=== PATIENT | female | born 1980 | race Hispanic/Latino ===

== ENCOUNTER → 2016-06-24 | Outpatient (CLI) | payer OTHER ==
[~2016-06-24] MED LIST: INSUNSD SC; LABE10TAB PO; NOVOINJ3 SC
--- NOTE | 2016-06-24 13:33 | REP ---
Clinical: Growth evaluation . Comparison: 06/03/2016 . Findings: Examination demonstrates a single live advanced intrauterine in cephalic presentation. motion is identified by technologist. Placenta is noted anteriorly and grade 3 without evidence for placenta previa or abruption. Amniotic fluid index equals 26.1 (7.6 - 24.6) Umbilical cord SD ratio equals 2.65 (1.76 - 2.76) Gestational age by LMP 36 weeks 4 days with ROZ 07/18/2016 . Gestational age by first ultrasound 36 weeks 4 days with ROZ 07/18/2016. Gestational age by current measurements 39 weeks 1 day with ROZ 06/30/2016 . FHR equals 139 beats per minute. BPD 9.3 cm 37 weeks 5 days HC 33.7 38 weeks 4 days AC 38.0 42 weeks 0 days FL 7.5 38 weeks 2 days HL 6.8 39 weeks 2 days HC/AC ratio 0.89 Estimated weight 4033 grams (greater than 97th percentile). Impression: Advanced gestation demonstrating greater than expected interval growth. Amniotic fluid index is mildly above normal range. Signed by Nathan Joyce MD 06/24/2016 01:24 P
== END ==
LOC: M RAD 11:57
PROVIDERS: ATTEND Obstetrics & Gynecology
DX: O24.414 Gestational diabetes mellitus in pregnancy, insulin controlled (principal); O10.013 Pre-existing essential hypertension complicating pregnancy, third trimester; O40.3XX0 Polyhydramnios, third trimester, not applicable or unspecified; Z3A.36 36 weeks gestation of pregnancy

== ENCOUNTER 2016-06-27 13:20 | Outpatient (CLI) | payer OTHER ==
[~2016-06-27] VITALS: Ht 175.3 cm; Wt 120.0 kg
[2016-06-27] MEDS ORDERED: INSUNSD SC (13:35)
[2016-06-27] MEDS ORDERED: NOVOINJ3 SC (13:35)
[2016-06-27] MEDS ORDERED: LABE10TAB PO ×2 (13:35)
[2016-06-27 13:39] VITALS: BP 147/82
[2016-06-27 13:41] VITALS: BP 143/85
[2016-06-27 13:57] VITALS: BP 158/82
[2016-06-27 14:24] LABS: MEAN CORPUSCULAR HEMOGLOBIN 30.7 pg (27.0-33.0); MEAN CORPUSCULAR HGB CONC 34.6 g/dl (32.0-36.5); MEAN CORPUSCULAR VOLUME 88.7 fl (80.0-96.0); RED CELL DISTRIBUTION WIDTH 14.3 % (11.5-14.5); WHITE BLOOD COUNT 7.5 K/mm3 (4.0-10.0)
[2016-06-27 14:37] LABS: ALBUMIN 2.3 GM/DL (3.2-5.2); ALBUMIN/GLOBULIN RATIO 0.59 (1.00-1.93); ALKALINE PHOSPHATASE 116 U/L (45-117); ALT/SGPT 19 U/L (12-78); ANION GAP 10 MEQ/L (8-16); AST/SGOT 20 U/L (15-37); BILIRUBIN,TOTAL 0.5 MG/DL (0.2-1.0); BLOOD UREA NITROGEN 13 MG/DL (7-18); CALCIUM LEVEL 8.7 MG/DL (8.5-10.1); CARBON DIOXIDE LEVEL 24 MEQ/L (21-32); CHLORIDE LEVEL 107 MEQ/L (98-107); CREATININE FOR GFR 0.68 MG/DL (0.55-1.02); GLOMERULAR FILTRATION RATE > 60.0 (>60); GLUCOSE, FASTING 99 MG/DL (70-105); POTASSIUM SERUM 4.3 MEQ/L (3.5-5.1); SODIUM LEVEL 141 MEQ/L (136-145); TOTAL PROTEIN 6.2 GM/DL (6.4-8.2)
[2016-06-27 14:38] VITALS: BP 130/75
[2016-06-27 15:08] VITALS: BP 138/81
--- NOTE | 2016-06-27 16:12 | IPNPDOC ---
Text Note Date of Service The patient was seen on 06/27/16 at 16:00. NOTE Jasmin is a 36yo with SIUP at 37wk sent to L&D triage for bp eval/PIH workup. PMhx significant for CHTN treated with labetalol, Class B diabetes on insulin, Obesity, hx of prior sections, Rh negative and recently diagnosed with polyhydramnios. She came in today for regular APFT monitoring and had non-reactive though reassuring tracing. BP at that time was 168/79 then 158/72. She denied headache , vision changes and abdominal pain. [place] very good movement. I performed a BPP and it was 8/8 (or 8/10 with NST). BPs on L&D: 147/82, 143/85, 158/82, 130/75, 138/81 PIH labs: CBC: 7.5/12.4/35.7/158 CMP: Na 141, K 4.3, Cl 107, HCO3 24, BUN 13, creat 0.68, glucose 99 AST 20, ALT 19 uric acid wnl Urine creatinine 261, urine protein 389.9, prot:creat = 1.5 (however, baseline 24hr UP = 585) Assessment: Jasmin is a 36yo with SIUP at 37wk with elevated bp in clinic which settled to baseline mild range while on L&D, more consistent with her known CHTN values. BPP 8/10 in clinic. PIH labs wnl w/exception of proteinuria, but with her CHTN and baseline proteinuria this is unsurprising. No symptoms of pre-eclampsia. Plan: -Has scheduled pre-op visit on 07/01 for her c/s that is planned for 39wk -Strong return precautions given for BRANDT, vision changes, abd pain, decreased movement -patient discharged to home MD Martha Giles Fishbone I+O Florentino LAU I+O Laboratory Tests 06/27/16 14:06 Calcium Level 8.7, Aspartate Amino Transf (AST/SGOT) 20, Alanine Aminotransferase (ALT/SGPT) 19, Alkaline Phosphatase 116, Total Bilirubin 0.5, Uric Acid 5.0, Total Protein 6.2 L, Albumin 2.3 L, Red Blood Count 4.02, Mean Corpuscular Volume 88.7, Mean Corpuscular Hemoglobin 30.7, Mean Corpuscular Hemoglobin Concent 34.6, Red Cell Distribution Width 14.3 Vital Signs Date Time Temp Pulse Resp B/P Pulse Ox O2 Delivery O2 Flow Rate FiO2 06/27/16 15:08 138/81 06/27/16 13:39 97.9 75 18 MANUEL HAIDER MD Jun 27, 2016 16:03
== END 2016-06-27 15:25 | disposition home or self-care (01) ==
LOC: M LDO 13:20
PROVIDERS: ATTEND Obstetrics & Gynecology
DX: O24.414 Gestational diabetes mellitus in pregnancy, insulin controlled (principal); O10.013 Pre-existing essential hypertension complicating pregnancy, third trimester; O40.3XX0 Polyhydramnios, third trimester, not applicable or unspecified; Z3A.37 37 weeks gestation of pregnancy

== ENCOUNTER 2016-07-07 08:29 | Outpatient (CLI) | payer OTHER ==
[~2016-07-07] VITALS: Ht 175.3 cm; Wt 124.0 kg
[2016-07-07 08:46] VITALS: BP 125/85
[2016-07-07] MEDS ORDERED: LABE10TAB PO (09:39)
[2016-07-07] MEDS ORDERED: PRENTAB9 PO (09:40)
--- NOTE | 2016-07-07 10:50 | IPNPDOC ---
Text Note Date of Service The patient was seen on 07/07/16 at 10:49. NOTE Subjective: Jasmin Reyes is a 36 yo with an IUP at 38w3d by lmp c/w 6wk u/s who presents to triage for vaginal spotting. She states she had a bit of bright red spotting when she wiped this morning that since faded to brownish very scant spotting. Feels crampy but no obvious ctx. No LOF. Feels good movement. Objective: Vitals wnl (normotensive), afebrile NST: FHT 150 with moderate variability, pos accels, neg decels. Reactive NST. [employer]: irreg CTXs Physical Exam- General: WDWN gravid female in NAD Mental : AAOx3 Abdominal: Gravid, soft, NT/ND without guarding, rebound Extremity: 1+ pitting edema of BLE (SCE chaperoned by RN) SCE: closed/50/high Assessment: Jasmin Reyes is a 36yo with an IUP at 38w3d by lmp c/w 6wk u/s without evidence of latent or active labor. Vitals wnl with benign physical exam. Reactive NST with irreg CTXs. course complicated by hx of 2 prior sections scheduled for repeat, CHTN, obesity, polyhydramnios (most recently 23cm), type II diabetes with good control on NPH/ Novalog, Rh negative received rhogam 05/19/16. Plan: -Has routine NST/MAU tomorrow in clinic, instructed her to keep appt -Repeat scheduled for this Thursday - kick counts daily-encouraged adequate hydration -Return precautions given, labor precautions discussed with patient. -[facility] reviewed MD Martha Giles, OBGYN VS,Fishbone, I+O VS, Fishbone, I+O Vital Signs Date Time Temp Pulse Resp B/P Pulse Ox O2 Delivery O2 Flow Rate FiO2 07/07/16 08:48 97.6 18 07/07/16 08:46 107 125/85 MANUEL HAIDER MD Jul 07, 2016 10:50
== END 2016-07-07 09:25 | disposition home or self-care (01) ==
LOC: M LDO 08:29
PROVIDERS: ATTEND Obstetrics & Gynecology
DX: O26.853 Spotting complicating pregnancy, third trimester (principal); Z3A.38 38 weeks gestation of pregnancy; O10.913 Unspecified pre-existing hypertension complicating pregnancy, third trimester; O99.213 Obesity complicating pregnancy, third trimester; O40.3XX0 Polyhydramnios, third trimester, not applicable or unspecified; O24.414 Gestational diabetes mellitus in pregnancy, insulin controlled; O36.0191 Maternal care for anti-D [Rh] antibodies, unspecified trimester, fetus 1; Z79.4 Long term (current) use of insulin

== ENCOUNTER 2016-07-08 18:37 | Inpatient (IN) | payer OTHER ==
[~2016-07-08] VITALS: Ht 175.3 cm; Wt 122.0 kg
[~2016-07-08 18:37] MED LIST changes: +PRENTAB9 PO
[2016-07-08 18:59] VITALS: BP 159/91
[2016-07-08 20:17] LABS: MEAN CORPUSCULAR HEMOGLOBIN 30.7 pg (27.0-33.0); MEAN CORPUSCULAR HGB CONC 35.3 g/dl (32.0-36.5); MEAN CORPUSCULAR VOLUME 86.8 fl (80.0-96.0); RED CELL DISTRIBUTION WIDTH 14.1 % (11.5-14.5); WHITE BLOOD COUNT 7.7 K/mm3 (4.0-10.0)
[2016-07-08 21:02] VITALS: BP 184/94
[2016-07-08 22:42] VITALS: BP 204/94
[2016-07-08 22:45] VITALS: BP 211/99
[2016-07-08 23:19] LABS: ALBUMIN 2.1 GM/DL (3.2-5.2); ALBUMIN/GLOBULIN RATIO 0.57 (1.00-1.93); ALKALINE PHOSPHATASE 143 U/L (45-117); ALT/SGPT 20 U/L (12-78); ANION GAP 11 MEQ/L (8-16); AST/SGOT 26 U/L (15-37); BILIRUBIN,TOTAL 0.4 MG/DL (0.2-1.0); BLOOD UREA NITROGEN 12 MG/DL (7-18); CALCIUM LEVEL 8.4 MG/DL (8.5-10.1); CARBON DIOXIDE LEVEL 21 MEQ/L (21-32); CHLORIDE LEVEL 111 MEQ/L (98-107); GLOMERULAR FILTRATION RATE > 60.0 (>60); GLUCOSE, FASTING 89 MG/DL (70-105); POTASSIUM SERUM 4.4 MEQ/L (3.5-5.1); SODIUM LEVEL 143 MEQ/L (136-145); TOTAL PROTEIN 5.8 GM/DL (6.4-8.2)
[2016-07-08 23:44] VITALS: BP 162/78
[2016-07-09] VITALS (29 sets, daily range): BP systolic 117–165; BP diastolic 54–95
[2016-07-09] MEDS ORDERED: DILUENT IV ONE (00:30)
[2016-07-09] MEDS ORDERED: BICITRA 30ML SOLN UDC PO ONE (00:30)
[2016-07-09] MEDS ORDERED: GENTAMICIN SULFATE IV ONE (00:30)
[2016-07-09] MEDS ORDERED: CLINDAMYCIN 900 MG in APPROPRIATE DILUENT 1 EA IV ONE (00:30)
[2016-07-09] MEDS ORDERED: OXYTOCIN INJ 10 UNITS/ML VIAL (J2590) As Ordered ONE (00:50)
[2016-07-09] MEDS ORDERED: MORPHINE PRES-FREE INJ 10 MG/10 ML VIAL (J2274) As Ordered ONE (00:50)
[2016-07-09] MEDS ORDERED: NALBUPHINE HCL 10 MG/ML AMP (J2300) IV PRN ×2 (01:08→03:30)
[2016-07-09] MEDS ORDERED: NALOXONE INJ 0.4 MG/1 ML VIAL (J2310) IV PRN ×2 (01:08)
[2016-07-09] MEDS ORDERED: ONDANSETRON 4MG/2ML VIAL (J2405) As Ordered ONE (01:47)
[2016-07-09] MEDS ORDERED: dexameTHASONE 4 MG/ML 1ML VIAL (J1100) As Ordered ONE (01:47)
[2016-07-09] MEDS ORDERED: MAG Sulf (L&D) 4 GM/100 ML 4 GM in APPROPRIATE DILUENT 1 EA IV ONE (02:45)
[2016-07-09] MEDS ORDERED: ONDANSETRON 4MG/2ML VIAL (J2405) IV PRN (02:45)
[2016-07-09] MEDS ORDERED: METOCLOPRAMIDE INJ 10MG/2ML VIAL (J2765) IV PRN (02:45)
[2016-07-09] MEDS ORDERED: RHOGAM 300 MCG (1500 IU) INJ (J2790) IM SCH (02:45)
[2016-07-09] MEDS ORDERED: METHYLERGONOVINE MALEATE 0.2 MG/ML VIAL (J2210) IM PRN (02:45)
[2016-07-09] MEDS ORDERED: PERCOCET 5MG/325MG TAB PO PRN ×3 (02:45→03:30)
[2016-07-09] MEDS ORDERED: MEASLES,MUMPS,RUBELLA VACCINE INJ (MMR-II) (90707) SC SCH (02:45)
[2016-07-09] MEDS ORDERED: KETOROLAC 30 MG/ML VIAL (J1885) IV PRN (03:30)
[2016-07-09] MEDS ORDERED: fentaNYL 100 MCG/2 ML INJECTION (J3010) IV PRN (03:30)
[2016-07-09] MEDS: LR 1,000 ML IV SCH ×3 (05:15→18:37)
[2016-07-09] MEDS: KETOROLAC 30 MG/ML VIAL (J1885) IV SCH ×4 (05:17→22:58)
[2016-07-09] MEDS: MAG Sulf (OBGYN) 20GM/500ML 20,000 MG in APPROPRIATE DILUENT 1 EA IV SCH ×3 (05:21→23:15)
[2016-07-09 06:56] LABS: MEAN CORPUSCULAR HEMOGLOBIN 30.3 pg (27.0-33.0); MEAN CORPUSCULAR HGB CONC 34.3 g/dl (32.0-36.5); MEAN CORPUSCULAR VOLUME 88.3 fl (80.0-96.0); RED CELL DISTRIBUTION WIDTH 14.3 % (11.5-14.5); WHITE BLOOD COUNT 11.9 K/mm3 (4.0-10.0)
[2016-07-09 07:17] LABS: ALBUMIN/GLOBULIN RATIO 0.49 (1.00-1.93); ALKALINE PHOSPHATASE 125 U/L (45-117); ALT/SGPT 20 U/L (12-78); ANION GAP 13 MEQ/L (8-16); AST/SGOT 24 U/L (15-37); BILIRUBIN,TOTAL 0.7 MG/DL (0.2-1.0); BLOOD UREA NITROGEN 15 MG/DL (7-18); CALCIUM LEVEL 8.3 MG/DL (8.5-10.1); CARBON DIOXIDE LEVEL 21 MEQ/L (21-32); CHLORIDE LEVEL 107 MEQ/L (98-107); CREATININE FOR GFR 0.89 MG/DL (0.55-1.02); GLOMERULAR FILTRATION RATE > 60.0 (>60); GLUCOSE, FASTING 163 MG/DL (70-105); POTASSIUM SERUM 4.4 MEQ/L (3.5-5.1); SODIUM LEVEL 141 MEQ/L (136-145); TOTAL PROTEIN 6.1 GM/DL (6.4-8.2); URIC ACID 5.8 MG/DL (2.6-6.0)
[2016-07-09] MEDS ORDERED: GLUCOSE 4 GM CHEW TABLET PO PRN (10:30)
[2016-07-09] MEDS ORDERED: DEXTROSE 50% 50 ML SYRINGE IV PRN (10:30)
[2016-07-09] MEDS ORDERED: GLUCAGON FOR INJ 1 MG VIAL (J1610) SC PRN (10:30)
[2016-07-09] MEDS: PRENATAL VITAMIN TAB PO SCH (11:22)
[2016-07-09] MEDS: HumaLOG INSULIN (NovoLOG) PER UNIT SC SCH ×2 (13:41→18:27)
--- NOTE | 2016-07-09 20:12 | IPNPDOC ---
Text Note Date of Service The patient was seen on 07/09/16 at 20:00. NOTE assumed care 1930, limited SBAR from Dr Velarde this AM, now from [facility]. S/P ERCS that I assisted with overnight. On Mag sulfate due to Pre-E with severe features. Also with Class B IDDM. Now on a sliding scale per Dr Velarde. Denies pain/BRANDT/Vis changes other than slightly fuzzy (nl on mag sulfate). No CP/SOB. VS stable, last fwe hours 120-130's/79-80's, nothing severe range UO has been ~50/hr last ~3 hrs Mentating normally NAD A&O No labored breathing Pfannensteil with no strike through on badage, U+2 but firm uterus (was quite enlarged at time of ) DTR's unable to detect, no clonus Preprandial BS's 0800: 158 1330: 125 (2 Units insulin given) 1830: 113 (2 units insulin given) a/p: Doing well with no clinical signs Mag toxicity other than now undetectable DTR's. Because is 18 hours after will get her CBC now and forego this draw in the AM, also get a mag level with it (low susp of mag toxicity). Will watch closely and likely d/c Mag sulfate at ~0200. Will not adjust Dr Velarde's sliding scale insulin orders, she is here in the AM. No significant diuresis yet, but UO is adequate. CBC and Mag level now. Sessions Florentino MYERS I+Florentino CAMPBELL I+Vasiliy Laboratory Tests 07/09/16 06:42 Calcium Level 8.3 L, Aspartate Amino Transf (AST/SGOT) 24, Alanine Aminotransferase (ALT/SGPT) 20, Lactate Dehydrogenase 278 H, Alkaline Phosphatase 125 H, Total Bilirubin 0.7 #, Uric Acid 5.8, Total Protein 6.1 L, Albumin 2.0 L, Red Blood Count 4.08, Mean Corpuscular Volume 88.3, Mean Corpuscular Hemoglobin 30.3, Mean Corpuscular Hemoglobin Concent 34.3, Red Cell Distribution Width 14.3 Vital Signs Date Time Temp Pulse Resp B/P Pulse Ox O2 Delivery O2 Flow Rate FiO2 07/09/16 17:54 97.1 18 1/25/17 17:30 76 125/62 I&O- Last 24 Hours up to 6 AM 07/09/16 06:00 Output Total 1175 ml Balance -1175 ml SESSIONS,ARVIND Shea MD Jul 09, 2016 20:12
[2016-07-09 20:20] LABS: BASO % 0.2 % (0.0-1.0); EOS % 0.2 % (0.0-3.0); LARGE UNSTAINED CELL # 0.1 K/mm3 (0.0-0.4); LARGE UNSTAINED CELL % 1.3 % (0.0-4.0); LYMPH # 1.3 K/mm3 (1.5-4.5); LYMPH % 12.9 % (24.0-44.0); MEAN CORPUSCULAR HEMOGLOBIN 31.2 pg (27.0-33.0); MEAN CORPUSCULAR HGB CONC 35.6 g/dl (32.0-36.5); MEAN CORPUSCULAR VOLUME 87.6 fl (80.0-96.0); MONO # 0.4 K/mm3 (0.0-0.8); MONO % 4.1 % (0.0-5.0); NEUTROPHILS # 7.9 K/mm3 (1.8-7.7); NEUTROPHILS % 81.3 % (36.0-66.0); PLATELET COUNT, AUTOMATED 156 k/mm3 (150-450); RED CELL DISTRIBUTION WIDTH 14.3 % (11.5-14.5); WHITE BLOOD COUNT 9.8 K/mm3 (4.0-10.0)
[2016-07-10 02:19] VITALS: BP 149/72
[2016-07-10 05:58] VITALS: BP 145/68
[2016-07-10] MEDS: IBUPROFEN 800 MG TAB PO SCH ×3 (06:28→22:20)
[2016-07-10] MEDS: PRENATAL VITAMIN TAB PO SCH (08:58)
[2016-07-10] MEDS: HumaLOG INSULIN (NovoLOG) PER UNIT SC SCH ×6 (08:59→22:20)
--- NOTE | 2016-07-10 08:59 | RO ---
DATE OF PROCEDURE: 07/09/2016 PREOPERATIVE DIAGNOSES: 1. Chronic hypertension with superimposed preeclampsia with severe features. 2. History of prior low transverse section. POSTOPERATIVE DIAGNOSES: 1. Chronic hypertension with superimposed preeclampsia with severe features. 2. History of prior low transverse section. 3. Delivered. PROCEDURE PERFORMED: Repeat low transverse section. SURGEON: Annabel Velarde MD SUPERVISOR CYTOLOGY: Rubens Rasheed MD ANESTHESIA: Spinal ESTIMATED BLOOD LOSS: 750. URINE OUTPUT: 25 mL. INTRAVENOUS FLUIDS: 1200 mL of lactated Ringer's. SPECIMEN: Placenta. ANTIBIOTICS: gentamicin 100 mg IV times one prior to skin incision and clindamycin 900 mg IV times one prior to skin incision. COMPLICATIONS: None. INDICATION: The patient is a 36-year-old, (G) 4, para (P) 2-0-1-2, at 38 days and 5 weeks estimated gestational age who presented to triage with increasing contractions. The patient was noted to be visibly dell and reported poor oral food intake. The patient had about 1.5 liters of IV fluids administered in triage and only had 25 mL of urine output in approximately 4 hours. The patient had preeclampsia labs drawn and were notable for protein creatinine ratio of 3.6. She also was noted to have severe range blood pressures in triage; therefore, giving her the diagnosis of chronic hypertension with superimposed preeclampsia with severe features. Given that the patient had two prior low transverse sections and a desire to repeat low transverse section, we proceeded with the procedure. FINDINGS: A viable male , Apgars 2 and 9, weight 10 pounds 8 ounces, 4774 grams. PROCEDURE: The risks, benefits and indications of the procedure were reviewed with the patient and informed consent was obtained. The patient was taken to the operating room where spinal anesthesia was obtained without difficulty. She was then prepped and draped in a normal sterile fashion in the dorsal supine position with a leftward tilt. A Pfannenstiel skin incision was then made with a scalpel and carried through to the underlying layer of fascia. The fascia was incised in the midline and the incision extended laterally with Lu scissors. The superior aspect of the fascial incision was grasped with Rm clamps, elevated and the underlying rectus muscles dissected off with a scalpel. Attention was then turned to the inferior aspect of the incision which in a similar fashion was grasped, tented up with the Rm clamps and the rectus muscles dissected off aided with Lu scissors. The rectus muscles were then at the midline. The peritoneum identified, tented up and entered digitally. The peritoneal incision was then extended horizontally with good visualization of the bladder The bladder blade was then inserted. The vesicouterine peritoneum was then identified, grasped with pickups and entered sharply with the Metzenbaum scissors. The incision was then extended laterally and the bladder flap created digitally. The bladder blade was then reinserted. Next, the lower uterine segment was incised in a transverse fashion with a scalpel. The uterine incision was then extended manually. The amniotic sac was artificially ruptured productive of meconium. The infant's head delivered atraumatically in the occiput anterior (OA) position through the hysterotomy without difficulty. The nose and mouth were suctioned with a bulb syringe and the cord doubly clamped and cut. The was handed off to the waiting civil cadd technician. The placenta was then removed spontaneously with gentle traction on the umbilical cord. The uterus was then exteriorized and cleared of all cleared of all clots and debris. The uterine incision was then repaired with #0 Vicryl in a running locked fashion. A second layer of #0 Vicryl was then used to imbricate the hysterotomy. Two [id number]-[id number] sutures using #0 Monocryl were then placed on the medial aspect of the incision to obtain excellent hemostasis. The posterior cul-de-sac was then irrigated. The uterus was then returned to the abdomen and the hysterotomy was again noted to be hemostatic. The paracolic gutters were irrigated and cleared of all clots and debris. The fascia was then reapproximated with #0 Vicryl in a running fashion. The subcutaneous layer was closed with #3-0 Vicryl in a running fashion. The skin was closed with #3-0 Monocryl on a Alessandro needle in subcuticular fashion. The incision was then dressed with Steri-Strips and a pressure dressing applied. At the completion of the case, bimanual exam was performed with good uterine tone and minimal vaginal bleeding was noted. The patient tolerated procedure well. Sponge, lap and needle counts were correct times three. The patient was taken to the recovery room in stable condition.
[2016-07-10] MEDS: MAG Sulf (OBGYN) 20GM/500ML 20,000 MG in APPROPRIATE DILUENT 1 EA IV SCH (09:15)
[2016-07-10 10:00] VITALS: BP 147/80
[2016-07-10] MEDS: LABETALOL 200 MG TAB PO SCH (13:36)
[2016-07-10 14:00] VITALS: BP 146/67
[2016-07-10] MEDS ORDERED: HumaLOG INSULIN (NovoLOG) PER UNIT SC SCH (17:30)
[2016-07-10] MEDS ORDERED: HumuLIN N INSULIN (NovoLIN N) PER UNIT SC SCH ×2 (17:30→21:00)
[2016-07-10] MEDS: HumuLIN N INSULIN (NovoLIN N) PER UNIT SC SCH ×2 (17:39→18:48)
[2016-07-10 17:55] VITALS: BP 147/73
[2016-07-10 22:00] VITALS: BP 140/73
[2016-07-11 02:00] VITALS: BP 138/80
[2016-07-11 06:00] VITALS: BP 154/70
[2016-07-11] MEDS: IBUPROFEN 800 MG TAB PO SCH (06:30)
[2016-07-11] MEDS: PRENATAL VITAMIN TAB PO SCH (08:01)
[2016-07-11 08:02] VITALS: BP 173/81
[2016-07-11] MEDS: HumuLIN N INSULIN (NovoLIN N) PER UNIT SC SCH (08:02)
[2016-07-11] MEDS: LABETALOL 200 MG TAB PO SCH (08:02)
[2016-07-11] MEDS: HumaLOG INSULIN (NovoLOG) PER UNIT SC SCH ×2 (08:03→12:00)
[2016-07-11 09:00] VITALS: BP 147/70
[2016-07-11] MEDS ORDERED: ADACEL/BOOSTRIX VACCINE (DIPHTH/PERTUSS/ACELL/TETANUS)0.5ML SYR (90715) IM ONE (09:00)
[2016-07-11] MEDS ORDERED: MOTR200T44 PO (12:30)
[2016-07-11] MEDS ORDERED: OXYC1TAB23 PO (12:31)
== END 2016-07-11 13:35 | disposition home or self-care (01) | DRG 766 ==
LOC: M LDO 18:37 → M LDI 07-09 00:17 → M OBS 07-10 01:56
PROVIDERS: ADMIT Obstetrics & Gynecology; ATTEND Obstetrics & Gynecology
PROC: 10D00Z1 Extraction of Products of Conception, Low, Open Approach (ICD-10-PCS; principal; 2016-07-09 16:21)
DX: O14.14 Severe pre-eclampsia complicating childbirth (principal); O24.12 Pre-existing type 2 diabetes mellitus, in childbirth; Z37.0 Single live birth; Z3A.38 38 weeks gestation of pregnancy; O34.211 Maternal care for low transverse scar from previous cesarean delivery; Z88.1 Allergy status to other antibiotic agents; Z79.4 Long term (current) use of insulin; O10.02 Pre-existing essential hypertension complicating childbirth; E11.9 Type 2 diabetes mellitus without complications

== ENCOUNTER 2016-07-25 15:09 | Emergency (ER) | payer OTHER ==
[~2016-07-25 15:09] MED LIST changes: +MOTR200T44 PO; +OXYC1TAB23 PO
[2016-07-25] MEDS ORDERED: LISINOPRIL 10 MG TAB As Ordered ONE (16:05)
[2016-07-25 16:21] LABS: MEAN CORPUSCULAR HEMOGLOBIN 28.8 pg (27.0-33.0); MEAN CORPUSCULAR HGB CONC 32.6 g/dl (32.0-36.5); MEAN CORPUSCULAR VOLUME 88.2 fl (80.0-96.0); RED CELL DISTRIBUTION WIDTH 13.4 % (11.5-14.5); WHITE BLOOD COUNT 5.8 K/mm3 (4.0-10.0)
--- NOTE | 2016-07-25 16:38 | REP ---
Duplex extremity venous ultrasound: Left lower extremity. History: Deformity and swelling left lower extremity. Findings: The deep veins are anechoic and fully compressible from the groin to the popliteal fossa in the left lower extremity. Color flow imaging is homogeneous. Spectral Doppler interrogation demonstrates intact respiratory variation in flow and normal manual augmentation of flow. There is no evidence of deep vein thrombosis. Impression: Negative left lower extremity duplex venous ultrasound. No evidence of deep vein thrombosis. Signed by Karlo Paris MD 07/25/2016 04:29 P
[2016-07-25 16:41] LABS: ANION GAP 7 MEQ/L (8-16); BLOOD UREA NITROGEN 15 MG/DL (7-18); CALCIUM LEVEL 8.5 MG/DL (8.5-10.1); CARBON DIOXIDE LEVEL 29 MEQ/L (21-32); CHLORIDE LEVEL 108 MEQ/L (98-107); CREATININE FOR GFR 0.65 MG/DL (0.55-1.02); GLOMERULAR FILTRATION RATE > 60.0 (>60); GLUCOSE, FASTING 127 MG/DL (70-105); POTASSIUM SERUM 4.1 MEQ/L (3.5-5.1); SODIUM LEVEL 144 MEQ/L (136-145)
--- NOTE | 2016-07-25 17:22 | EDDOCDS ---
Physician Documentation [facility] Name: Jasmin Reyes Age: 36 yrs Sex: Female : 1980 Arrival Date: 07/25/2016 Time: 15:09 Bed 11 Private MD: NAVJOT Hope Disposition: 07/25/16 16:56 Discharged to Home/Self Care. Impression: Edema, unspecified - dependent edema, Essential (primary) hypertension. - Condition is Stable. - Discharge Instructions: Edema, Hypertension. - Medication Reconciliation, Local Pharmacy Hours form. - Follow up: NAVJOT Hope; When: 4 - 5 days; Reason: Recheck today's complaints, Continuance of care. Follow up: Annabel Velarde MD; When: 4 - 5 days; Reason: Recheck today's complaints, Continuance of care. - Problem is an ongoing problem. - Symptoms are unchanged. - Notes: elevate legs Historical: - Allergies: Keflex; - Home Meds: 1. NPH 10 units BID 2. Novolog 10 units Sub-Q soln with meals 3. labetalol 100 mg Oral tab daily 4. Vitamin Oral tab 1 tab once daily 5. Motrin 800 mg Oral tab as needed 6. OxyContin Unknown Oral nightly 7. Stool Softener oral oral once daily - PMHx: Diabetes - IDDM: controlled; Hypertension; - PSHx: ; - Social history: Smoking status: Patient states was never smoker of tobacco. No barriers to communication noted, The patient speaks fluent [place], Speaks appropriately for age. - Family history: Not pertinent. - : The pt / caregiver states he / she is not on anticoagulants. Home medication list is obtained from the patient. - Exposure Risk Screening:: None identified. TARGETEER: 07/25 15:21 LMP N/A - Recent srm Vital Signs: 15:10 BP 194 / 101; Pulse 79; Resp 17; Temp 98.6(T); Pulse Ox 98% on R/A; Weight 111.58 kg / lr2 245.99 lbs (R); Height 5 ft. 9 in. (175.26 cm) (R); 15:37 BP 178 / 88; Pulse 82; Resp 18; Pulse Ox 99% on R/A; Pain 0/10; kc3 17:21 BP 188 / 98; Pulse 80; Resp 18; Temp 98.1(O); Pulse Ox 98% on R/A; Pain 0/10; kc3 15:10 Body Mass Index 36.33 (111.58 kg, 175.26 cm) lr2 17:21 Provider aware of BP at discharge. kc3 MDM: 15:56 Lisinopril 10 mg PO once ordered. ke 15:57 US Lower Extremity R/O DVT Ordered. EDMS 15:57 CBC Ordered. EDMS 15:57 PT/INR Ordered. EDMS 15:57 BMP Ordered. EDMS 16:05 Financial registration complete. zo 16:05 [facility] Payment Agreement was scanned into [employer] and attached to record. zo 16:07 ECG WITH READING ER PHYS+CARDIAG ordered. EDMS 16:44 CBC Reviewed. ke 16:44 BMP Reviewed. ke 16:44 PT/INR Reviewed. ke Administered Medications: 16:14 Drug: Lisinopril 10 mg [lisinopril 10 mg tablet (1 tabs)] Route: PO; kc3 Signatures: Dispatcher [employer] EDSharon Marquez, RN RN Yg Cortez, HOUSE CALLS NURSE HOUSE CALLS NURSE Hai Pierce Kelsi, RN RN kc3 The chart was reviewed and I authenticate all verbal orders and agree with the evaluation and treatment provided.Attachments: 16:05 [facility] Payment Agreement zo [email or web address]
--- NOTE | 2016-07-25 17:22 | EDDOCDS ---
Nurse's Notes [facility] Name: Jasmin Reyes Age: 36 yrs Sex: Female : 1980 Arrival Date: 07/25/2016 Time: 15:09 Bed 11 Private MD: Jayy [facility] [place] Diagnosis: Edema, unspecified-dependent edema;Essential (primary) hypertension Presentation: 07/25 15:16 Presenting complaint: Patient states: dr rausch sent me- 16 days- swelling srm to left leg and high BP. has hx of high BP- had normal BP during . denies SOB or chest pain. Adult Sepsis Screening: The patient does not have new or worsening altered mentation. Patient's respiratory rate is less than 22. Systolic blood pressure is greater than 100. Patient has a qSOFA score of 0- Negative Sepsis Screen. Suicide/Homicide risk assessment- the patient denies having any suicidal and/or homicidal ideations and does not present with any other emotional, behavioral or mental health complaints. Status: The patient is a dependent. Transition of care: patient was not received from another setting of care. 15:16 Acuity: ESTHELA Level 3 srm 15:16 Method Of Arrival: Walkin/Carried/Asstd srm 15:26 Red Flag criteria, acknowledged- triaged then take n to exam room. pt stable. report srm given to mercedez nunez. Triage Assessment: 15:20 General: Appears in no apparent distress, Behavior is appropriate for age, cooperative. srm Pain: Denies pain. 15:21 Pt Declines HIV testing. 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 NPH 10 units BID 2. Novolog 10 units Sub-Q soln with meals 3. labetalol 100 mg Oral tab daily 4. Vitamin Oral tab 1 tab once daily 5. Motrin 800 mg Oral tab as needed 6. OxyContin Unknown Oral nightly 7. Stool Softener oral oral once daily - PMHx: Diabetes - IDDM: controlled; Hypertension; - PSHx: ; - Social history: Smoking status: Patient states was never smoker of tobacco. No barriers to communication noted, The patient speaks fluent Mauritanian, Speaks appropriately for age. - Family history: Not pertinent. - : The pt / caregiver states he / she is not on anticoagulants. Home medication list is obtained from the patient. - Exposure Risk Screening:: None identified. Screenin:37 Screening information is obtained from the patient. Fall risk: No risks identified. kc3 Assistance ADL's: requires no assistance with activities of daily living. Abuse/DV Screen: The patient / caregiver reports he/she is: not in a situation that causes fear, pain or injury. Nutritional screening: No deficits noted. Advance Directives: Currently, there is no health care proxy. home support is adequate. Assessment: 15:33 General: Appears in no apparent distress, comfortable, Behavior is appropriate for age, kc3 cooperative. Pain: Denies pain. Neurological: Level of Consciousness is awake, alert, obeys commands, Oriented to person, place, time. Cardiovascular: Rhythm is regular Chest pain is denied. Cardiovascular: Pulses are palpable in left dorsalis pedis artery. Respiratory: Airway is patent Respiratory effort is even, unlabored. Derm: Skin is normal, Swollen area noted on left lower leg. Derm: Musculoskeletal: Circulation, motion, and sensation intact Capillary refill < 3 seconds. 16:25 General: Appears in no apparent distress, comfortable, Behavior is appropriate for age, kc3 cooperative. Pain: Denies pain. Neurological: Level of Consciousness is awake, alert, obeys commands. Respiratory: Respiratory effort is even, unlabored. Derm: Skin is normal. 17:21 General: Appears in no apparent distress, comfortable, Behavior is appropriate for age, kc3 cooperative. Pain: Denies pain. Neurological: Level of Consciousness is awake, alert, obeys commands. Respiratory: Respiratory effort is even, unlabored. Derm: Skin is normal. Vital Signs: 15:10 BP 194 / 101; Pulse 79; Resp 17; Temp 98.6(T); Pulse Ox 98% on R/A; Weight 111.58 kg lr2 (R); Height 5 ft. 9 in. (175.26 cm) (R); 15:37 BP 178 / 88; Pulse 82; Resp 18; Pulse Ox 99% on R/A; Pain 0/10; kc3 17:21 BP 188 / 98; Pulse 80; Resp 18; Temp 98.1(O); Pulse Ox 98% on R/A; Pain 0/10; kc3 15:10 Body Mass Index 36.33 (111.58 kg, 175.26 cm) lr2 17:21 Provider aware of BP at discharge. kc3 Vitals: 15:10 Log In Time: July 25, 2016 at 15:09. lr2 ED Course: 15:10 Patient visited by Lesli Rowell. lr2 15:10 Jayy [facility] [place] is Private Physician. lr2 15:10 Patient moved to Waiting lr2 15:10 Patient moved to Pre RCE lr2 15:18 Triage Initiated srm 15:22 Ronna Arnett,RN is Primary Nurse. srm 15:22 Patient moved to 11 srm 15:27 Patient visited by Sharon Gu, RN. srm 15:37 Patient visited by Ronna Arnett,RN. kc3 15:37 The patient / caregiver is instructed regarding the plan of care and ED course. kc3 15:51 [facility] ke 15:52 Patient visited by Yg Rowan FNP. ke 15:52 Patient visited by Yg Rowan FNP. ke 16:05 [facility] Payment Agreement was scanned into [employer] and attached to record. zo 16:08 Patient moved to Ultrasound am10 16:13 BMP Sent. kc3 16:13 PT/INR Sent. kc3 16:14 CBC Sent. kc3 16:26 Patient moved to 11 am10 16:32 Patient visited by Martha Bishop PCA. ct3 16:32 EKG done. (by ED staff). Reviewed by Yg SELLERS. ct3 16:46 US Lower Extremity R/O DVT Returned. EDMS 16:55 Patient visited by Yg Rowan FNP. ke 16:55 NAVJOT Hope is Referral Physician. ke 16:55 Annabel Rausch MD is Referral Physician. ke 17:21 No IV's were initiated during this patient's visit. No procedures done that require kc3 assistance. Administered Medications: 16:14 Drug: Lisinopril 10 mg [lisinopril 10 mg tablet (1 tabs)] Route: PO; kc3 Order Results: Lab Order: CBC; SPEC'M 07/25/16 16:13 Test: WHITE BLOOD COUNT; Value: 5.8; Range: 4.0-10.0; Units: K/mm3; Status: F Test: RED BLOOD COUNT; Value: 3.99; Range: 4.00-5.40; Abnormal: Below low normal; Units: M/mm3; Status: F Test: HEMOGLOBIN; Value: 11.5; Range: 12.0-16.0; Abnormal: Below low normal; Units: g/dl; Status: F Test: HEMATOCRIT; Value: 35.2; Range: 36.0-47.0; Abnormal: Below low normal; Units: %; Status: F Test: MEAN CORPUSCULAR VOLUME; Value: 88.2; Range: 80.0-96.0; Units: fl; Status: F Test: MEAN CORPUSCULAR HEMOGLOBIN; Value: 28.8; Range: 27.0-33.0; Units: pg; Status: F Test: MEAN CORPUSCULAR HGB CONC; Value: 32.6; Range: 32.0-36.5; Units: g/dl; Status: F Test: RED CELL DISTRIBUTION WIDTH; Value: 13.4; Range: 11.5-14.5; Units: %; Status: F Test: PLATELET COUNT, AUTOMATED; Value: 267; Range: 150-450; Units: k/mm3; Status: F Lab Order: PT/INR; SPEC'07/25/16 16:13 Test: PROTHROMBIN TIME; Value: 13.3; Range: 12.3-14.5; Units: SECONDS; Status: F Test: INR; Value: 1.00; Status: F Test Note: ; THERAPUTIC HUMAN INR VALUES INDICATIONS NORMAL RANGES PROPHYLAXIS/TREATMENT OF: VENOUS THROMBOSIS 2.0-3.0 PULMONARY EMBOLISM 2.0-3.0 PREVENTION OF SYSTEMIC EMBOLISM FROM: TISSUE HEART VALVES 2.0-3.0 ACUTE MYOCARDIAL INFARCTION 2.0-3.0 VALVULAR HEART DISEASE 2.0-3.0 ATRIAL FIBRILLATION 2.0-3.0 MECHANICAL VALVES(HIGH RISK) 2.5-3.5 RECURRENT MYOCARDIAL INFARCTION 2.5-3.5 Lab Order: BMP; SPEC'07/25/16 16:13 Test: GLUCOSE, FASTING; Value: 127; Range: 70-105; Abnormal: Above high normal; Units: MG/DL; Status: F Test: BLOOD UREA NITROGEN; Value: 15; Range: 7-18; Units: MG/DL; Status: F Test: CREATININE FOR GFR; Value: 0.65; Range: 0.55-1.02; Units: MG/DL; Status: F Test: GLOMERULAR FILTRATION RATE; Value: > 60.0; Range: >60; Status: F Test: SODIUM LEVEL; Value: 144; Range: 136-145; Units: MEQ/L; Status: F Test: POTASSIUM SERUM; Value: 4.1; Range: 3.5-5.1; Units: MEQ/L; Status: F Test: CHLORIDE LEVEL; Value: 108; Range: 98-107; Abnormal: Above high normal; Units: MEQ/L; Status: F Test: CARBON DIOXIDE LEVEL; Value: 29; Range: 21-32; Units: MEQ/L; Status: F Test: ANION GAP; Value: 7; Range: 8-16; Abnormal: Below low normal; Units: MEQ/L; Status: F Test: CALCIUM LEVEL; Value: 8.5; Range: 8.5-10.1; Units: MG/DL; Status: F Test Note: ; Units are mL/min/1.73 m2 Chronic Kidney Disease Staging per NKF: Stage I & II GFR >=60 Normal to Mildly Decreased Stage III GFR 30-59 Moderately Decreased Stage IV GFR 15-29 Severely Decreased Stage V GFR <15 Very Little GFR Left ESRD GFR <15 on PRICING CLERK Radiology Order: US Lower Extremity R/O DVT Test: US Lower Extremity R/O DVT REASON FOR EXAMINATION: Deformity/Swelling; Duplex extremity venous ultrasound: Left lower extremity.; ; History: Deformity and swelling left lower extremity.; ; Findings: The deep veins are anechoic and fully compressible from the groin to; the popliteal fossa in the left lower extremity. Color flow imaging is; homogeneous. Spectral Doppler interrogation demonstrates intact respiratory; variation in flow and normal manual augmentation of flow. There is no evidence; of deep vein thrombosis.; ; Impression:; ; Negative left lower extremity duplex venous ultrasound. No evidence of deep vein; thrombosis.; ; ; Signed by; Karlo Paris MD 07/25/2016 04:29 P; Outcome: 16:56 Discharge ordered by Provider. mora 17:21 Discharge Assessment: Patient awake, alert and oriented x 3. No cognitive and/or kc3 functional deficits noted. Patient verbalized understanding of disposition instructions. patient administered narcotics - no. The following High Risk Discharge criteria are identified: None. Discharged to home ambulatory. Condition: stable. Discharge instructions given to patient, Instructed on discharge instructions, follow up and referral plans. Demonstrated understanding of instructions, Pt was receptive of discharge instructions/ teaching. Ultrasound Study completed. Property :Personal belongings accompany Pt. 17:22 Patient left the ED. kc3 Signatures: Dispatcher [employer] EDMS Sharon Gu, RN RN Yg Cortez, BLANKBOOK FORWARDER BLANKBOOK FORWARDER Hai Pierce Ashley am10 Martha Bishop, PERFORMANCE IMPROVEMENT ANALYST PERFORMANCE IMPROVEMENT ANALYST ct3 Ronna Arnett,RAYA RN kc3 Lesli Rowell2 MTDD
--- NOTE | 2016-07-25 21:37 | ECGEPIP ---
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
--- NOTE | 2016-07-27 18:23 | EDDOCDS ---
Physician Documentation [facility] Name: Jasmin Reyes Age: 36 yrs Sex: Female : 1980 Arrival Date: 07/25/2016 Time: 15:09 Bed 11 Private MD: NAVJOT Hope Disposition: 07/25/16 16:56 Discharged to Home/Self Care. Impression: Edema, unspecified - dependent edema, Essential (primary) hypertension. - Condition is Stable. - Discharge Instructions: Edema, Hypertension. - Medication Reconciliation, Local Pharmacy Hours form. - Follow up: NAVJOT Hope; When: 4 - 5 days; Reason: Recheck today's complaints, Continuance of care. Follow up: Annabel Velarde MD; When: 4 - 5 days; Reason: Recheck today's complaints, Continuance of care. - Problem is an ongoing problem. - Symptoms are unchanged. - Notes: elevate legs Historical: - Allergies: Keflex; - Home Meds: 1. NPH 10 units BID 2. Novolog 10 units Sub-Q soln with meals 3. labetalol 100 mg Oral tab daily 4. Vitamin Oral tab 1 tab once daily 5. Motrin 800 mg Oral tab as needed 6. OxyContin Unknown Oral nightly 7. Stool Softener oral oral once daily - PMHx: Diabetes - IDDM: controlled; Hypertension; - PSHx: ; - Social history: Smoking status: Patient states was never smoker of tobacco. No barriers to communication noted, The patient speaks fluent Nepalese, Speaks appropriately for age. - Family history: Not pertinent. - : The pt / caregiver states he / she is not on anticoagulants. Home medication list is obtained from the patient. - Exposure Risk Screening:: None identified. 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 9 in. (175.26 cm) (R); 15:37 BP 178 / 88; Pulse 82; Resp 18; Pulse Ox 99% on R/A; Pain 0/10; kc3 17:21 BP 188 / 98; Pulse 80; Resp 18; Temp 98.1(O); Pulse Ox 98% on R/A; Pain 0/10; kc3 15:10 Body Mass Index 36.33 (111.58 kg, 175.26 cm) lr2 17:21 Provider aware of BP at discharge. kc3 MDM: 15:56 Lisinopril 10 mg PO once ordered. ke 15:57 US Lower Extremity R/O DVT Ordered. EDMS 15:57 CBC Ordered. EDMS 15:57 PT/INR Ordered. EDMS 15:57 BMP Ordered. EDMS 16:05 Financial registration complete. zo 16:05 [facility] Payment Agreement was scanned into [employer] and attached to record. zo 16:07 ECG WITH READING ER PHYS+CARDIAG ordered. EDMS 16:44 CBC Reviewed. ke 16:44 BMP Reviewed. ke 16:44 PT/INR Reviewed. ke 07/26 10:41 T-Sheet-- Draft Copy was scanned into [employer] and attached to record. gb 16:15 ECG/EKG was scanned into [employer] and attached to record. gb Administered Medications: 07/25 16:14 Drug: Lisinopril 10 mg [lisinopril 10 mg tablet (1 tabs)] Route: PO; kc3 Signatures: Dispatcher [employer] Sharon Frances, RAYA RN Rachell Dickson, Reg Reg gb Yg Rowan, OPERATIONS SPECIALISTS OPERATIONS SPECIALISTS Hai Pierce Kelsi, RN RN kc3 The chart was reviewed and I authenticate all verbal orders and agree with the evaluation and treatment provided.Attachments: 16:05 [facility] Payment Agreement zo 07/26 10:41 T-Sheet-- Draft Copy gb 16:15 ECG/EKG gb Chart Complete MTDD
--- NOTE | 2016-07-27 18:23 | EDDOCDS ---
Physician Documentation [facility] Name: Jasmin Reyes Age: 36 yrs Sex: Female : 1980 Arrival Date: 07/25/2016 Time: 15:09 Bed 11 Private MD: NAVJOT Hope Disposition: 07/25/16 16:56 Discharged to Home/Self Care. Impression: Edema, unspecified - dependent edema, Essential (primary) hypertension. - Condition is Stable. - Discharge Instructions: Edema, Hypertension. - Medication Reconciliation, Local Pharmacy Hours form. - Follow up: NAVJOT Hope; When: 4 - 5 days; Reason: Recheck today's complaints, Continuance of care. Follow up: Annabel Velarde MD; When: 4 - 5 days; Reason: Recheck today's complaints, Continuance of care. - Problem is an ongoing problem. - Symptoms are unchanged. - Notes: elevate legs Historical: - Allergies: Keflex; - Home Meds: 1. NPH 10 units BID 2. Novolog 10 units Sub-Q soln with meals 3. labetalol 100 mg Oral tab daily 4. Vitamin Oral tab 1 tab once daily 5. Motrin 800 mg Oral tab as needed 6. OxyContin Unknown Oral nightly 7. Stool Softener oral oral once daily - PMHx: Diabetes - IDDM: controlled; Hypertension; - PSHx: ; - Social history: Smoking status: Patient states was never smoker of tobacco. No barriers to communication noted, The patient speaks fluent Gabonese, Speaks appropriately for age. - Family history: Not pertinent. - : The pt / caregiver states he / she is not on anticoagulants. Home medication list is obtained from the patient. - Exposure Risk Screening:: None identified. 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 9 in. (175.26 cm) (R); 15:37 BP 178 / 88; Pulse 82; Resp 18; Pulse Ox 99% on R/A; Pain 0/10; kc3 17:21 BP 188 / 98; Pulse 80; Resp 18; Temp 98.1(O); Pulse Ox 98% on R/A; Pain 0/10; kc3 15:10 Body Mass Index 36.33 (111.58 kg, 175.26 cm) lr2 17:21 Provider aware of BP at discharge. kc3 MDM: 15:56 Lisinopril 10 mg PO once ordered. ke 15:57 US Lower Extremity R/O DVT Ordered. EDMS 15:57 CBC Ordered. EDMS 15:57 PT/INR Ordered. EDMS 15:57 BMP Ordered. EDMS 16:05 Financial registration complete. zo 16:05 [facility] Payment Agreement was scanned into [employer] and attached to record. zo 16:07 ECG WITH READING ER PHYS+CARDIAG ordered. EDMS 16:44 CBC Reviewed. ke 16:44 BMP Reviewed. ke 16:44 PT/INR Reviewed. ke 07/26 10:41 T-Sheet-- Draft Copy was scanned into [employer] and attached to record. gb 16:15 ECG/EKG was scanned into [employer] and attached to record. gb Administered Medications: 07/25 16:14 Drug: Lisinopril 10 mg [lisinopril 10 mg tablet (1 tabs)] Route: PO; kc3 Signatures: Dispatcher [employer] Sharon Frances, RAYA RN Rachell Dickson, Reg Reg gb Yg Rowan, HIDE CURER HIDE CURER Hai Pierce Kelsi, RN RN kc3 The chart was reviewed and I authenticate all verbal orders and agree with the evaluation and treatment provided.Attachments: 16:05 [facility] Payment Agreement zo 07/26 10:41 T-Sheet-- Draft Copy gb 16:15 ECG/EKG gb Chart Complete MTDD
--- NOTE | 2016-07-27 18:23 | EDDOCDS ---
Nurse's Notes [facility] Name: Kalee Wei Age: 36 yrs Sex: Female : 1980 Arrival Date: 07/25/2016 Time: 15:09 Bed 11 Private MD: [place] [facility] [place]: Edema, unspecified-dependent edema;Essential (primary) hypertension Presentation: 07/25 15:16 Presenting complaint: Patient states: dr rausch sent me- 16 days- swelling srm to left leg and high BP. has hx of high BP- had normal BP during . denies SOB or chest pain. Adult Sepsis Screening: The patient does not have new or worsening altered mentation. Patient's respiratory rate is less than 22. Systolic blood pressure is greater than 100. Patient has a qSOFA score of 0- Negative Sepsis Screen. Suicide/Homicide risk assessment- the patient denies having any suicidal and/or homicidal ideations and does not present with any other emotional, behavioral or mental health complaints. Status: The patient is a dependent. Transition of care: patient was not received from another setting of care. 15:16 Acuity: ESTHELA Level 3 srm 15:16 Method Of Arrival: Walkin/Carried/Asstd srm 15:26 Red Flag criteria, acknowledged- triaged then take n to exam room. pt stable. report srm given to mercedez nunez. Triage Assessment: 15:20 General: Appears in no apparent distress, Behavior is appropriate for age, cooperative. srm Pain: Denies pain. 15:21 Pt Declines HIV testing. srm STEWARD/STEWARDESS WINE: 15:21 LMP N/A - Recent srm Historical: - Allergies: Keflex; - Home Meds: 1. NPH 10 units BID 2. Novolog 10 units Sub-Q soln with meals 3. labetalol 100 mg Oral tab daily 4. Vitamin Oral tab 1 tab once daily 5. Motrin 800 mg Oral tab as needed 6. OxyContin Unknown Oral nightly 7. Stool Softener oral oral once daily - PMHx: Diabetes - IDDM: controlled; Hypertension; - PSHx: ; - Social history: Smoking status: Patient states was never smoker of tobacco. No barriers to communication noted, The patient speaks fluent [place], Speaks appropriately for age. - Family history: Not pertinent. - : The pt / caregiver states he / she is not on anticoagulants. Home medication list is obtained from the patient. - Exposure Risk Screening:: None identified. Screenin:37 Screening information is obtained from the patient. Fall risk: No risks identified. kc3 Assistance ADL's: requires no assistance with activities of daily living. Abuse/DV Screen: The patient / caregiver reports he/she is: not in a situation that causes fear, pain or injury. Nutritional screening: No deficits noted. Advance Directives: Currently, there is no health care proxy. home support is adequate. Assessment: 15:33 General: Appears in no apparent distress, comfortable, Behavior is appropriate for age, kc3 cooperative. Pain: Denies pain. Neurological: Level of Consciousness is awake, alert, obeys commands, Oriented to person, place, time. Cardiovascular: Rhythm is regular Chest pain is denied. Cardiovascular: Pulses are palpable in left dorsalis pedis artery. Respiratory: Airway is patent Respiratory effort is even, unlabored. Derm: Skin is normal, Swollen area noted on left lower leg. Derm: Musculoskeletal: Circulation, motion, and sensation intact Capillary refill < 3 seconds. 16:25 General: Appears in no apparent distress, comfortable, Behavior is appropriate for age, kc3 cooperative. Pain: Denies pain. Neurological: Level of Consciousness is awake, alert, obeys commands. Respiratory: Respiratory effort is even, unlabored. Derm: Skin is normal. 17:21 General: Appears in no apparent distress, comfortable, Behavior is appropriate for age, kc3 cooperative. Pain: Denies pain. Neurological: Level of Consciousness is awake, alert, obeys commands. Respiratory: Respiratory effort is even, unlabored. Derm: Skin is normal. Vital Signs: 15:10 BP 194 / 101; Pulse 79; Resp 17; Temp 98.6(T); Pulse Ox 98% on R/A; Weight 111.58 kg lr2 (R); Height 5 ft. 9 in. (175.26 cm) (R); 15:37 BP 178 / 88; Pulse 82; Resp 18; Pulse Ox 99% on R/A; Pain 0/10; kc3 17:21 BP 188 / 98; Pulse 80; Resp 18; Temp 98.1(O); Pulse Ox 98% on R/A; Pain 0/10; kc3 15:10 Body Mass Index 36.33 (111.58 kg, 175.26 cm) lr2 17:21 Provider aware of BP at discharge. kc3 Vitals: 15:10 Log In Time: July 25, 2016 at 15:09. lr2 ED Course: 15:10 Patient visited by Lesli Rowell. lr2 15:10 [place] [facility] [place] Private Physician. lr2 15:10 Patient moved to Waiting lr2 15:10 Patient moved to Pre RCE lr2 15:18 Triage Initiated srm 15:22 Ronna Arnett,RN is Primary Nurse. srm 15:22 Patient moved to 11 srm 15:27 Patient visited by Sharon Gu, RN. srm 15:37 Patient visited by Ronna Arnett,RN. kc3 15:37 The patient / caregiver is instructed regarding the plan of care and ED course. kc3 15:51 Yg Rowan FNP is PHCP. ke 15:52 Patient visited by Yg Rowan FNP. ke 15:52 Patient visited by Yg Rowan FNP. ke 16:05 [facility] Payment Agreement was scanned into [employer] and attached to record. zo 16:08 Patient moved to Ultrasound am10 16:13 BMP Sent. kc3 16:13 PT/INR Sent. kc3 16:14 CBC Sent. kc3 16:26 Patient moved to 11 am10 16:32 Patient visited by Martha Bishop PCA. ct3 16:32 EKG done. (by ED staff). Reviewed by Yg SELLERS. ct3 16:46 US Lower Extremity R/O DVT Returned. EDMS 16:55 Patient visited by Yg Rowan FNP. ke 16:55 BERTHA Hope is Referral Physician. ke 16:55 Annabel Rausch MD is Referral Physician. ke 17:21 No IV's were initiated during this patient's visit. No procedures done that require kc3 assistance. 22:17 EKG-ADULT Returned. EDMS 07/26 10:41 T-Sheet-- Draft Copy was scanned into [employer] and attached to record. gb 16:15 ECG/EKG was scanned into [employer] and attached to record. gb Administered Medications: 07/25 16:14 Drug: Lisinopril 10 mg [lisinopril 10 mg tablet (1 tabs)] Route: PO; kc3 Order Results: Lab Order: CBC; [facility] 07/25/16 16:13 Test: WHITE BLOOD COUNT; Value: 5.8; Range: 4.0-10.0; Units: K/mm3; Status: F Test: RED BLOOD COUNT; Value: 3.99; Range: 4.00-5.40; Abnormal: Below low normal; Units: M/mm3; Status: F Test: HEMOGLOBIN; Value: 11.5; Range: 12.0-16.0; Abnormal: Below low normal; Units: g/dl; Status: F Test: HEMATOCRIT; Value: 35.2; Range: 36.0-47.0; Abnormal: Below low normal; Units: %; Status: F Test: MEAN CORPUSCULAR VOLUME; Value: 88.2; Range: 80.0-96.0; Units: fl; Status: F Test: MEAN CORPUSCULAR HEMOGLOBIN; Value: 28.8; Range: 27.0-33.0; Units: pg; Status: F Test: MEAN CORPUSCULAR HGB CONC; Value: 32.6; Range: 32.0-36.5; Units: g/dl; Status: F Test: RED CELL DISTRIBUTION WIDTH; Value: 13.4; Range: 11.5-14.5; Units: %; Status: F Test: PLATELET COUNT, AUTOMATED; Value: 267; Range: 150-450; Units: k/mm3; Status: F Lab Order: PT/INR; [facility] 07/25/16 16:13 Test: PROTHROMBIN TIME; Value: 13.3; Range: 12.3-14.5; Units: SECONDS; Status: F Test: INR; Value: 1.00; Status: F Test Note: ; THERAPUTIC HUMAN INR VALUES INDICATIONS NORMAL RANGES PROPHYLAXIS/TREATMENT OF: VENOUS THROMBOSIS 2.0-3.0 PULMONARY EMBOLISM 2.0-3.0 PREVENTION OF SYSTEMIC EMBOLISM FROM: TISSUE HEART VALVES 2.0-3.0 ACUTE MYOCARDIAL INFARCTION 2.0-3.0 VALVULAR HEART DISEASE 2.0-3.0 ATRIAL FIBRILLATION 2.0-3.0 MECHANICAL VALVES(HIGH RISK) 2.5-3.5 RECURRENT MYOCARDIAL INFARCTION 2.5-3.5 Lab Order: BMP; [facility] 07/25/16 16:13 Test: GLUCOSE, FASTING; Value: 127; Range: 70-105; Abnormal: Above high normal; Units: MG/DL; Status: F Test: BLOOD UREA NITROGEN; Value: 15; Range: 7-18; Units: MG/DL; Status: F Test: CREATININE FOR GFR; Value: 0.65; Range: 0.55-1.02; Units: MG/DL; Status: F Test: GLOMERULAR FILTRATION RATE; Value: > 60.0; Range: >60; Status: F Test: SODIUM LEVEL; Value: 144; Range: 136-145; Units: MEQ/L; Status: F Test: POTASSIUM SERUM; Value: 4.1; Range: 3.5-5.1; Units: MEQ/L; Status: F Test: CHLORIDE LEVEL; Value: 108; Range: 98-107; Abnormal: Above high normal; Units: MEQ/L; Status: F Test: CARBON DIOXIDE LEVEL; Value: 29; Range: 21-32; Units: MEQ/L; Status: F Test: ANION GAP; Value: 7; Range: 8-16; Abnormal: Below low normal; Units: MEQ/L; Status: F Test: CALCIUM LEVEL; Value: 8.5; Range: 8.5-10.1; Units: MG/DL; Status: F Test Note: ; Units are mL/min/1.73 m2 Chronic Kidney Disease Staging per NKF: Stage I & II GFR >=60 Normal to Mildly Decreased Stage III GFR 30-59 Moderately Decreased Stage IV GFR 15-29 Severely Decreased Stage V GFR <15 Very Little GFR Left ESRD GFR <15 on DOBBY LOOM CHAIN PEGGER Radiology Order: US Lower Extremity R/O DVT Test: US Lower Extremity R/O DVT REASON FOR EXAMINATION: Deformity/Swelling; Duplex extremity venous ultrasound: Left lower extremity.; ; History: Deformity and swelling left lower extremity.; ; Findings: The deep veins are anechoic and fully compressible from the groin to; the popliteal fossa in the left lower extremity. Color flow imaging is; homogeneous. Spectral Doppler interrogation demonstrates intact respiratory; variation in flow and normal manual augmentation of flow. There is no evidence; of deep vein thrombosis.; ; Impression:; ; Negative left lower extremity duplex venous ultrasound. No evidence of deep vein; thrombosis.; ; ; Signed by; Karlo Paris MD 07/25/2016 04:29 P; Radiology Order: EKG-ADULT Test: EKG-ADULT REASON FOR EXAMINATION: Deformity/Swelling; Stationary ECG Study; [facility] - ED; ; Test Date: 2016-07-25; Pat Name: KALEE WEI Department:; Room: -; Gender: F Punch Box Tender: ct; : 1980 Requested By: YG SELLERS; Order Number: [id number] Reading MD: Kassie Castro; Measurements; Intervals [place]; Rate: 75 P: 45; MT: 148 QRS: -38; QRSD: 106 T: 15; QT: 399; QTc: 446; Interpretive Statements; SINUS RHYTHM; MARKED LEFT AXIS DEVIATION; S1-S2-S3 PATTERN, CONSISTENT WITH PULMONARY DISEASE, RVH, OR NORMAL VARIANT; PATTERN CONSISTENT WITH PULMONARY DISEASE; NO PRIOR FOR COMPARISON; Electronically Signed On 07-25-2016 21:37:18 EST by Kassie Castro; Outcome: 16:56 Discharge ordered by Provider. ke 17:21 Discharge Assessment: Patient awake, alert and oriented x 3. No cognitive and/or kc3 functional deficits noted. Patient verbalized understanding of disposition instructions. patient administered narcotics - no. The following High Risk Discharge criteria are identified: None. Discharged to home ambulatory. Condition: stable. Discharge instructions given to patient, Instructed on discharge instructions, follow up and referral plans. Demonstrated understanding of instructions, Pt was receptive of discharge instructions/ teaching. Ultrasound Study completed. Property :Personal belongings accompany Pt. 17:22 Patient left the ED. kc3 Signatures: Dispatcher [employer] EDMS Sharon Gu, RN RN Rachell Dickson, Reg Reg Yg Mesa FNP FNP Hai Pierce Ashley am10 Martha Bishop, TRANSFER AGENT TRANSFER AGENT ct3 Ronna Arnett,RAYA RN [email or web address] Lesli Rowell2 Chart Complete MTDD
== END 2016-07-25 17:22 | disposition home or self-care (01) ==
LOC: M ED 15:09
DX: R60.9 Edema, unspecified (principal); I10 Essential (primary) hypertension; E10.9 Type 1 diabetes mellitus without complications; Z79.4 Long term (current) use of insulin; Z79.891 Long term (current) use of opiate analgesic; Z79.899 Other long term (current) drug therapy; Z88.5 Allergy status to narcotic agent